=== PATIENT | female | born 2000 | race African-American/Black ===

== ENCOUNTER → 2020-10-15 16:55 | Outpatient (CLI) | payer OTHER, SELFPAY ==
[2020-10-15 19:02] LABS: Add Manual Diff / Slide Review NO; Basophils Absolute Auto 0 /uL (0-100); Basophils Percent Auto 0.3 % (0-2); Eosinophils Absolute Auto 100 /uL (0-450); Eosinophils Percent Auto 0.6 % (2-4); Hematocrit 34.7 % (36-46); Hemoglobin 11.7 g/dL (12.0-16.0); Lymphocytes Absolute Auto 3500 /uL (1100-4500); Lymphocytes Percent Auto 24.7 % (25-40); Mean Corpuscular HGB Conc 33.6 % (30-36); Mean Corpuscular Hemoglobin 30.5 PG (26-34); Mean Corpuscular Volume 90.8 fL (80-100); Monocytes Absolute Auto 1000 /uL (0-900); Monocytes Percent Auto 7.4 % (3-14); Neutrophils Absolute Auto 9500 /uL (1500-7000); Platelet Count 247 X10^3/uL (150-400); Red Blood Cell Count 3.82 X10^6/uL (4.0-5.2); Red Cell Distribution Width 12.7 % (11.6-14.8); White Blood Cell Count 14.2 X10^3/uL (4.5-11.0)
[2020-10-16 00:03] LABS: Hepatitis B Surface Antigen NEGATIVE s/c (NEGATIVE); Rubella Antibody IgG 20.4 IU/mL (>15)
[2020-10-16 00:20] LABS: HIV 1 & 2 Ab/Ag 4th Gen Combo NEGATIVE (NEGATIVE); Hep C Virus Ab w/Reflex Quant NEGATIVE s/c (NEGATIVE)
[2020-10-16 06:39] LABS: RPR Screen Non Reactive (Non Reactive)
[2020-10-16 08:36] LABS: Varicella IgG Antibody <135 index (Immune >165)
== END ==
PROVIDERS: PCP Family Medicine; Referring Provider Family Medicine; Visit Provider Family Medicine
DX: Z34.01 Encounter for supervision of normal first pregnancy, first trimester (principal)
CPT/HCPCS: 36415; 80055; 86787; 86803; 86850; 86900; 86901; 87389

== ENCOUNTER → 2020-10-16 11:37 | Outpatient (CLI) | payer OTHER, SELFPAY ==
[2020-10-16 12:16] LABS: Appearance Urine UA CLEAR; Bilirubin Urine UA NEGATIVE (NEGATIVE); Color Urine UA YELLOW; Glucose Urine UA NEGATIVE (Negative); Ketones Urine UA NEGATIVE (NEGATIVE); Leukocyte Esterase Urine UA NEGATIVE (NEGATIVE); Nitrite Urine UA NEGATIVE (Negative); Occult Blood Urine UA NEGATIVE (Negative); Protein Urine UA NEGATIVE (Negative); Specific Gravity Urine UA 1.015 (1.000-1.035)
[2020-10-16 12:22] LABS: pH Urine UA 7.5 (4.5-8.0)
[2020-10-16 13:34] LABS: Urine N gonorrhoeae NOT DETECTED
[2020-10-16 13:59] LABS: Urine Chlamydia NOT DETECTED
== END ==
PROVIDERS: PCP Family Medicine; Referring Provider Family Medicine; Visit Provider Family Medicine
DX: Z11.3 Encounter for screening for infections with a predominantly sexual mode of transmission (principal); Z11.8 Encounter for screening for other infectious and parasitic diseases; Z3A.08 8 weeks gestation of pregnancy; Z34.01 Encounter for supervision of normal first pregnancy, first trimester
CPT/HCPCS: 81003; 87086; 87491; 87591

== ENCOUNTER → 2020-11-08 12:50 | Outpatient (CLI) | payer OTHER, SELFPAY ==
[2020-11-08 14:47] LABS: Urine N gonorrhoeae NOT DETECTED
[2020-11-08 14:52] LABS: Urine Chlamydia NOT DETECTED
== END ==
PROVIDERS: PCP Family Medicine; Visit Provider Physician Assistant
DX: O26.899 Other specified pregnancy related conditions, unspecified trimester (principal); N89.8 Other specified noninflammatory disorders of vagina
CPT/HCPCS: 87210; 87491; 87591

== ENCOUNTER → 2020-12-02 15:15 | Outpatient (CLI) | payer OTHER, SELFPAY ==
[2020-12-02 18:47] LABS: Bacteria Urine None Seen; WBC Urine None Seen (0-5/HPF)
[2020-12-02 18:56] LABS: Appearance Urine UA CLEAR; Bilirubin Urine UA NEGATIVE (NEGATIVE); Color Urine UA YELLOW; Glucose Urine UA NEGATIVE (Negative); Ketones Urine UA TRACE (NEGATIVE); Leukocyte Esterase Urine UA NEGATIVE (NEGATIVE); Nitrite Urine UA NEGATIVE (Negative); Occult Blood Urine UA NEGATIVE (Negative); Protein Urine UA NEGATIVE (Negative); Specific Gravity Urine UA 1.015 (1.000-1.035); Urobilinogen Urine UA 0.2 E.U./dL (0.2)
[2020-12-02 19:31] LABS: Culture Indicated Urine Cult Not Indicated; RBC Urine 1-5/HPF (0-5/HPF); Squamous Epithelial Cell Urine 5-10 /HPF (0-5/HPF)
[2020-12-06 10:16] LABS: Chlamydia trachomatis Negative (Negative); Mycoplasma genitalium Positive (Negative); Neisseria gonorrhoeae Negative (Negative)
== END ==
PROVIDERS: PCP Family Medicine; Visit Provider Family Medicine
DX: N89.8 Other specified noninflammatory disorders of vagina (principal); R10.2 Pelvic and perineal pain; Z11.3 Encounter for screening for infections with a predominantly sexual mode of transmission; Z11.8 Encounter for screening for other infectious and parasitic diseases
CPT/HCPCS: 81001; 87210; 87491; 87563; 87591

== ENCOUNTER → 2020-12-10 15:17 | Outpatient (CLI) | payer OTHER, SELFPAY ==
[2020-12-10 16:11] LABS: Glucose 78 mg/dL (70-100)
[2020-12-10 16:47] LABS: Hemoglobin A1C% w Est Avg Glu 5.2 % (4.0-6.0)
[2020-12-12 22:44] LABS: AFP, Serum 41.1 ng/mL (.); Calc Gestational Age Ultrasound (.); Estriol, Free 0.64 ng/mL (.); Inhibin A, Dimeric 73.06 pg/mL (.); Inhibin A, MoM 0.49 (.); Maternal Ethnicity Black (.); Maternal Weight 162 lbs (.); Number of Fetuses No (.); OSBR Risk 1 IN 10000 (.); Results Report (.); Test Results *Screen Negative* (.); hCG, MoM 1.04 (.); hCG, Serum 36443 mIU/mL (.)
== END ==
PROVIDERS: PCP Family Medicine; Referring Provider Family Medicine; Visit Provider Family Medicine
DX: Z34.02 Encounter for supervision of normal first pregnancy, second trimester (principal); Z3A.16 16 weeks gestation of pregnancy
CPT/HCPCS: 36415; 82105; 82677; 82947; 83036; 84702; 86336

== ENCOUNTER → 2020-12-23 12:03 | Outpatient (CLI) | payer OTHER, SELFPAY ==
[2020-12-23 14:35] LABS: Urine N gonorrhoeae NOT DETECTED
[2020-12-23 14:38] LABS: Urine Chlamydia NOT DETECTED
[2020-12-23 19:09] LABS: Hepatitis B Surface Antigen NEGATIVE s/c (NEGATIVE)
[2020-12-23 19:34] LABS: HIV 1 & 2 Ab/Ag 4th Gen Combo NEGATIVE (NEGATIVE)
== END ==
PROVIDERS: PCP Family Medicine; Referring Provider Family Medicine; Visit Provider Family Medicine
DX: Z11.3 Encounter for screening for infections with a predominantly sexual mode of transmission (principal)
CPT/HCPCS: 36415; 87340; 87389; 87491; 87591

== ENCOUNTER → 2021-01-02 10:51 | Outpatient (CLI) | payer OTHER, SELFPAY ==
[2021-01-02 11:48] LABS: COVID19 -Nasal RAPID Negative (Negative)
== END ==
PROVIDERS: PCP Family Medicine; Visit Provider Student in an Organized Health Care Education/Training Program
DX: R05 Cough (principal); Z20.822 Contact with and (suspected) exposure to COVID-19; J02.9 Acute pharyngitis, unspecified
CPT/HCPCS: 87070; 87077; 87147; 87635

== ENCOUNTER → 2021-01-06 14:00 | Outpatient (CLI) | payer OTHER, SELFPAY ==
--- NOTE | 2021-01-06 14:01 | DI.US.S_ITS ---
PROCEDURE: US OB >= 14 WEEKS FETUS INDICATIONS: ANATOMY SCAN OUTSIDE/PRIOR DATING DATA: Last menstrual period (LMP): 08/17/2020. LMP-based estimated date of delivery (SIDNEY): 05/24/2021 . First dating scan (date and location): 01/06/2021 . Estimated date of delivery (SIDNEY) from first dating scan: 06/03/2021 . TECHNIQUE: Real-time scanning was performed of the fetus, with image documentation and biometric measurements. Endovaginal scanning: No COMPARISON: None. FINDINGS: General: A single living intrauterine gestation is present. Presentation: Transverse. Placenta: Placental position is anterior , without previa. Amniotic fluid index: 14.5 cm, normal range is 5-24 cm. heart rate: 158 beats per minute. Maternal cervical canal: 4.0 cm long. Normal lower limit is 2.5 cm. biometrics: Biparietal diameter: 18 weeks 6 days Head circumference: 18 weeks 5 days Abdominal circumference: 18 weeks 6 days Femur length: 18 weeks 6 days Estimated gestational age from initial scan: not applicable. Composite gestational age from present scan: 18 weeks 6 days Estimated weight and percentile: 260 g Measurement variability for biometric dating: +/- 7 days from 14 weeks to 15 weeks 6 days gestation, +/- 10 days from 16 weeks to 21 weeks 6 days gestation, +/- 2 weeks from 22 weeks to 27 weeks 6 days gestation, +/- 3 weeks for 28 weeks gestation or later. weight reference: 4500 g or EFW >90/95% is considered macrosomia or large for gestational age. EFW <10% is small for gestational age. EFW 5% or less is considered intra-uterine growth restriction. Anatomic survey: Neuro: Ventricles are non-dilated at less than 10 mm. Cisterna magna is normal at 3-11 mm. Cerebellum is normal in size and morphology. Nuchal skin fold: Normal at less than 6 mm between 14-21 weeks gestational age. Face: Nose and lips, facial profile are normal. Spine: No evidence for spina bifida. Heart: 4-chambered heart is present, with normal ventricular outflow tracts. Diaphragm: Diaphragm is intact. Stomach: Left-sided stomach is present. Kidneys: No hydronephrosis. Normal is less than 5 mm in 2nd trimester, less than 7 mm in 3rd trimester. Cord: 3-vessel cord has orthotopic insertion. Bladder: Normal in size. Extremities: All 4 extremities identified. IMPRESSION: 1. 18 week 6 day single living IUP corresponding to ultrasound SIDNEY of 06/03/2021. 2. Normal anatomic survey. Dictated by: Shashi Lobo [facility] Interpreted: Gamaliel Ernandez MD on 01/06/2021 at 15:53 Transcribed by: ISAIAH on 01/06/2021 at 15:57 Approved by: Gamaliel Ernandez M.D. on 01/06/2021 at 17:16
== END ==
PROVIDERS: PCP Family Medicine; Referring Provider Family Medicine; Visit Provider Family Medicine
DX: Z36.89 Encounter for other specified antenatal screening (principal); Z3A.18 18 weeks gestation of pregnancy
CPT/HCPCS: 76811

== ENCOUNTER 2021-01-18 18:24 | Observation (INO) | payer OTHER, SELFPAY ==
--- NOTE | 2021-01-18 18:58 | PM.OBTRLD ---
Visit Information Visit Information Date of evaluation: 01/18/21 On-call OB Provider: Kaycee England Reason for Evaluation: Yes other Comments/Additional reasons for admission: 19YO @ 22weeks here for evaluation of vaginal irritation x 1 week. Has noticed thick discharge and dark urine with a strong odor. No concern for sexually transmitted infection. No cramping or vaginal bleeding. 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 Father Diabetes mellitus Grandmother Cancer Renal cancer Grandfather Family estrangement Grandmother Old age Family estrangement Grandfather Dementia Diabetes mellitus Family estrangement Brother No problems noted. Sister No problems noted. Family/Other Sickle cell anemia Social History marital status: unmarried,single household members: other lives independently: Yes pets and animals: No education level: college (Some College X 4 Semesters in Nursing : stopped due to Financial ) occupational status: employed (Works on the [employer] ) current occupational exposures/hazards: No Previous occupational history: [employer] needs: No Smoking Status: Former smoker Tobacco: How many years used: 1 Smokeless tobacco user: other (Vape : socially on and off) second hand exposure: No alcohol intake: former (pre- : socially ) substance use type: does not use Review of Systems Review of Systems ROS: Yes All systems reviewed with the patient and are negative except as otherwise documented Exam Vital Signs (past 8 hours): see above Objective Labs Labs: UA- negative for infection GENEVA/Wet mount prep- negative for yeast, clue cells, and trichomonas Evaluation Evaluation Baseline heart rate: 150 Diagnosis, Plan/Disposition Plan/Disposition Plan: Reassurance given for no UTI, BV or yeast infection. GC/CT/MG swab pending, will call with results. Recommend increased hydration and consider a probiotic. OB Disposition: home
[2021-01-18 19:13] LABS: RBC Urine None Seen (0-5/HPF); WBC Urine None Seen (0-5/HPF)
[2021-01-18 19:14] LABS: Appearance Urine UA CLEAR; Bilirubin Urine UA NEGATIVE (NEGATIVE); Color Urine UA YELLOW; Glucose Urine UA NEGATIVE (Negative); Ketones Urine UA NEGATIVE (NEGATIVE); Leukocyte Esterase Urine UA NEGATIVE (NEGATIVE); Nitrite Urine UA NEGATIVE (Negative); Occult Blood Urine UA NEGATIVE (Negative); Protein Urine UA NEGATIVE (Negative); Urobilinogen Urine UA 0.2 E.U./dL (0.2)
[2021-01-18 19:55] LABS: Bacteria Urine None Seen; Culture Indicated Urine Cult Not Indicated
[2021-01-22 11:15] LABS: Chlamydia trachomatis Negative (Negative); Mycoplasma genitalium Negative (Negative); Neisseria gonorrhoeae Negative (Negative)
== END 2021-01-18 20:05 | disposition home or self-care (01) ==
PROVIDERS: Admitting Provider Nurse Practitioner Obstetrics & Gynecology; PCP Family Medicine; Referring Provider Nurse Practitioner Obstetrics & Gynecology; Visit Provider Nurse Practitioner Obstetrics & Gynecology
DX: O26.892 Other specified pregnancy related conditions, second trimester (principal); N89.8 Other specified noninflammatory disorders of vagina; Z3A.20 20 weeks gestation of pregnancy
CPT/HCPCS: 59050; 81001; 87210; 87220; 87491; 87563; 87591; G0378; G0379